=== PATIENT | female | born 1970 | race Native Hawaiian/Other Pacific Islander ===

== ENCOUNTER 2022-05-24 10:56 | Outpatient (CLI) | payer OTHER ==
[2022-05-24 12:26] LABS: Basophils # (Auto) 0.1 K/mm3 (0.0-0.1); Eosinophils # (Auto) 0.1 K/mm3 (0.0-0.4); Eosinophils % (Auto) 1.5 % (0.0-4.3); Hematocrit 40.7 % (30.3-42.9); Hemoglobin 13.8 gm/dl (10.1-14.3); Lymphocytes # (Auto) 1.7 K/mm3 (1.2-5.4); Lymphocytes % (Auto) 29.7 % (13.4-35.0); Mean Corpuscular HGB Conc 34 % (30-34); Mean Corpuscular Volume 87 fl (79-97); Monocytes # (Auto) 0.4 K/mm3 (0.0-0.8); Monocytes % (Auto) 7.5 % (0.0-7.3); Platelet Count 230 K/mm3 (140-440); Red Cell Distribution Width 13.5 % (13.2-15.2)
[2022-05-24 13:05] LABS: Bacteria,Urine 1+ /HPF (Negative); Mucus,Urine FEW /HPF; WBC,Urine < 1.0 /HPF (0.0-6.0)
[2022-05-24 13:13] LABS: Color,Urine Straw (Yellow); Ictotest,Urine Positive (Negative)
[2022-05-24 14:15] LABS: Alanine Aminotransferase 17 units/L (7-56); Albumin 5.1 g/dL (3.9-5); BUN/Creatinine Ratio 25; Blood Urea Nitrogen 15 mg/dL (7-17); Calcium 10.2 mg/dL (8.4-10.2); Chol/HDL Ratio 4.25 %; HDL Cholesterol 78 mg/dL (40-59); Hemolysis Index 6; LDL Cholesterol,Direct 226 mg/dL (50-130)
== END 2022-05-24 10:57 | disposition home or self-care (01) ==
LOC: LABHHL 10:56
PROVIDERS: ATTEND Internal Medicine
DX: E78.5 Hyperlipidemia, unspecified (principal); E55.9 Vitamin D deficiency, unspecified; R20.2 Paresthesia of skin; N39.0 Urinary tract infection, site not specified
CPT/HCPCS: 36415; 80053; 80061; 81001; 82306; 82607; 84443; 85025